=== PATIENT | female | born 1985 | race Caucasian/White ===

== ENCOUNTER → 2016-04-12 | Outpatient (CLI) | payer BC ==
--- NOTE | 2016-04-12 09:53 | US ---
Ultrasound left breast History: Palpable tender lump lateral left breast. Findings: Ultrasound of the lateral left breast over area palpable concern demonstrates a dominant lo bule of dense breast parenchymal tissue that corresponds with area of palpable concern. No underlying significant solid or cystic mass is evident. Impression: 1. Benign findings lateral left breast ultrasound. BI-RADS 2 Clinical followup is recommended on all palpable nodules. Despite negative or benign imaging, if the palpable abnormality increases in size, additional imaging followup may be necessary or possibly cody gical consultation. [employer] recommends routine annual mammogram to begin at age 40 unless clini zacarias indicated to perform earlier. The results of this study were reviewed with the patient.
== END ==
LOC: FIMAGING 09:10
PROVIDERS: ATTEND Surgery
DX: Z12.39 Encounter for other screening for malignant neoplasm of breast (principal); N63 Unspecified lump in breast

== ENCOUNTER → 2016-07-18 | Outpatient (CLI) | payer BC | LOC: FIMAGING 14:22 | PROVIDERS: ATTEND Obstetrics & Gynecology | DX: Z34.02 Encounter for supervision of normal first pregnancy, second trimester (principal); Z3A.19 19 weeks gestation of pregnancy ==